=== PATIENT | male | born 2000 | race American Indian/Alaskan Native ===

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

== ENCOUNTER 2019-05-19 00:28 | Emergency (ER) | payer SELFPAY ==
[2019-05-19 00:50] VITALS: BP 108/66
[2019-05-19] MEDS ORDERED: DELTASONE PO ONE (02:06)
[2019-05-19] MEDS ORDERED: DUONEB *Not for PRN Use IH ONE (02:06)
--- NOTE | 2019-05-19 02:07 | Emergency Department Report ---
Minor Respiratory - HPI Chief Complaint: Upper Respiratory Infection Stated Complaint: SORE THROAT,HEADACHE,CONGESTION Time Seen by Provider: 05/19/19 02:01 Duration: 3 Days Pain Location: Chest Severity: mild Minor Respiratory: Yes Sore Throat, Yes Able to Tolerate Fluids, Yes Cough, No Rhinorrhea, No Ear Pain, No Sick Contacts, No Hemoptysis, No Chest Pain, No Shortness of Breath, No Fever Other History: 18 YO MALE WITH HX ASTHMA COMES TO ER WITH COUGH AND SORE THROAT. REPORTS WHEEZING AND HIS NEBS NOT HELPING. NO FEVER OR CHILLS. NO SPUTUM ED Review of Systems ROS: Stated complaint: SORE THROAT,HEADACHE,CONGESTION Other details as noted in HPI Comment: All other systems reviewed and negative ED Past Medical Hx - Past Medical History Previous Medical History?: Yes Hx Asthma: Yes - Surgical History Past Surgical History?: Yes - Social History Smoking Status: Never Smoker Substance Use Type: None - Medications Home Medications: Home Medications Medication Instructions Recorded Confirmed Last Taken Type Azithromycin [Zithromax Z-JURGEN] 0 mg PO DAILY #6 tab 04/03/17 Unknown Rx Ibuprofen [Motrin 600 MG tab] 600 mg PO Q8H PRN #20 tablet 04/03/17 Unknown Rx Loratadine [Claritin] 10 mg PO DAILY 04/03/17 04/03/17 04/03/17 History Promethazine [Phenergan TAB] 25 mg PO Q6HR PRN #20 tab 04/03/17 Unknown Rx Promethazine [Phenergan] 25 mg [place] Q6HR PRN #5 supp.rect 04/03/17 Unknown Rx Albuterol Sulfate [Proair 90 mcg IH QID PRN #1 aer.pow.ba 05/19/19 Unknown Rx Respiclick] Azithromycin [Zithromax Z-JURGEN] 250 mg PO DAILY #6 tablet 05/19/19 Unknown Rx Fluticasone [Flonase] 1 spray NS QDAY #1 bottle 05/19/19 Unknown Rx predniSONE [Deltasone] 20 mg PO DAILY #5 tablet 05/19/19 Unknown Rx Minor Respiratory Exam - Exam General: Vital signs noted. No distress. Alert and acting appropriately. HEENT: Yes Pharyngeal Erythema, Yes Moist Mucous Membranes, No Pharyngeal Exudates, No Rhinorrhea Ear: Neither TM Bulge, Neither TM Erythema, Neither EAC Pain, Neither EAC Discharge Neck: Yes Supple, No Adenopathy Lungs: Yes Good Air Exchange, Yes Wheezes, No [place], No Stridor Heart: Yes Regular, No Murmur Neurologic: Alert and oriented, no deficits. Musculoskeletal: Unremarkable. ED Course Vital Signs 05/19/19 05/19/19 00:38 00:46 Temperature 97.9 F 97.9 F Pulse Rate 88 Respiratory 18 18 Rate Blood Pressure 108/66 108/66 O2 Sat by Pulse 97 Oximetry ED Medical Decision Making - Medical Decision Making SIMPLE ASTHMA AE NO FEVER OR CHILLS NO SPUTUM VSS AMBULATORY NON TOXIC TAKING PO Vital Signs 05/19/19 05/19/19 00:38 00:46 Temperature 97.9 F 97.9 F Pulse Rate 88 Respiratory 18 18 Rate Blood Pressure 108/66 108/66 O2 Sat by Pulse 97 Oximetry - Differential Diagnosis SIMPLE URI/ASTHMA Critical care attestation.: If time is entered above; I have spent that time in minutes in the direct care of this critically ill patient, excluding procedure time. ED Disposition Clinical Impression: Asthma, acute, URTI (acute upper respiratory infection) Disposition: TO HOME OR SELFCARE Is pt being admited?: No Does the pt Need Aspirin: No Condition: Stable Instructions: Asthma (ED) Prescriptions: predniSONE [Deltasone] 20 mg PO DAILY #5 tablet Fluticasone [Flonase] 1 spray NS QDAY #1 bottle Albuterol Sulfate [Proair Respiclick] 90 mcg IH QID PRN #1 aer.pow.ba PRN Reason: Wheezing Azithromycin [Zithromax Z-JURGEN] 250 mg PO DAILY #6 tablet Referrals: RAMESH PEREZ MD [Primary Care Provider] - 3-5 Days PRASHANT KNOX MD [Staff Physician] - 3-5 Days Time of Disposition: 02:12
== END 2019-05-19 02:58 | disposition home or self-care (01) ==
LOC: ED 00:28
DX: J45.909 Unspecified asthma, uncomplicated (principal); J06.9 Acute upper respiratory infection, unspecified; Z79.899 Other long term (current) drug therapy; Z88.0 Allergy status to penicillin
CPT/HCPCS: 94640; 99283; J7512

== ENCOUNTER 2019-07-04 19:12 | Emergency (ER) | payer SELFPAY ==
[2019-07-04 19:21] VITALS: BP 108/62
--- NOTE | 2019-07-04 19:56 | Emergency Department Report ---
Blank Doc - Documentation Documentation: 18-year-old male that presents with URI symptoms and sore throat. This initial assessment/diagnostic orders/clinical plan/treatment(s) is/are subject to change based on patient's health status, clinical progression and re- assessment by fellow clinical providers in the ED. Further treatment and workup at subsequent clinical providers discretion. Patient/guardians urged not to elope from the ED as their condition may be serious if not clinically assessed and managed. Initial orders include: 1- Patient sent to [facility] for further evaluation and treatment 2- CXR 3- strep swabs
--- NOTE | 2019-07-04 21:46 | XRay Report ---
CHEST PA AND LATERAL VIEWS INDICATION: cough. COMPARISON: 04/03/2017 FINDINGS: Support devices: None Heart: Normal and unchanged. Lungs/Pleura: No acute pulmonary or pleural findings. IMPRESSION: 1. No significant abnormality and no interval change. Signer Name: Lake Martinez MD Signed: 07/04/2019 9:42 PM Workstation Name: [id number]
--- NOTE | 2019-07-04 22:33 | Emergency Department Report ---
- General Chief Complaint: Upper Respiratory Infection Stated Complaint: SINUS/SANTANA/SORE THROAT Time Seen by Provider: 07/04/19 19:55 Source: patient Mode of arrival: Ambulatory Limitations: No Limitations - History of Present Illness Initial Comments: 18-year-old -I[place] male with past medical history of asthma presents emergency department complaining of cough congestion and coryza over the last 2 weeks. MD Complaint: sore throat, rhinorrhea, nasal congestion -: Gradual, days(s) (14) Severity: mild, moderate Quality: dull Consistency: constant Improves With: nothing Worsens With: nothing Context: sick contacts Associated Symptoms: rhinorrhea, nasal congestion, sore throat, cough (with green-yellow mucus production increase in activity over the past 3 days). denies: shortness of breath, abdominal pain, vomiting, diarrhea, epistaxis - Related Data Home Medications Medication Instructions Recorded Confirmed Last Taken Loratadine [Claritin] 10 mg PO DAILY 04/03/17 04/03/17 04/03/17 Previous Rx's Medication Instructions Recorded Last Taken Type Azithromycin [Zithromax Z-JURGEN] 0 mg PO DAILY #6 tab 04/03/17 Unknown Rx Ibuprofen [Motrin 600 MG tab] 600 mg PO Q8H PRN #20 tablet 04/03/17 Unknown Rx Promethazine [Phenergan TAB] 25 mg PO Q6HR PRN #20 tab 04/03/17 Unknown Rx Promethazine [Phenergan] 25 mg [place] Q6HR PRN #5 supp.rect 04/03/17 Unknown Rx Albuterol Sulfate [Proair 90 mcg IH QID PRN #1 aer.pow.ba 05/19/19 Unknown Rx Respiclick] Azithromycin [Zithromax Z-JURGEN] 250 mg PO DAILY #6 tablet 05/19/19 Unknown Rx Fluticasone [Flonase] 1 spray NS QDAY #1 bottle 05/19/19 Unknown Rx predniSONE [Deltasone] 20 mg PO DAILY #5 tablet 05/19/19 Unknown Rx ALBUTEROL Inhaler (OR & NICU) 1 puff IH Q4-6H PRN #1 inha 07/04/19 Unknown Rx [ProAir HFA Inhaler] guaiFENesin/CODEINE [Robitussin AC] 5 ml PO Q6H PRN #120 ml 07/04/19 Unknown Rx predniSONE [Deltasone] 20 mg PO QDAY #5 tab 07/04/19 Unknown Rx Allergies Allergy/AdvReac Type Severity Reaction Status Date / Time Penicillins Allergy Rash Verified 04/19/15 11:22 ED Review of Systems ROS: Stated complaint: SINUS/SANTANA/SORE THROAT Other details as noted in HPI Comment: All other systems reviewed and negative ED Past Medical Hx - Past Medical History Hx Asthma: Yes - Social History Smoking Status: Never Smoker Substance Use Type: None - Medications Home Medications: Home Medications Medication Instructions Recorded Confirmed Last Taken Type Azithromycin [Zithromax Z-JURGEN] 0 mg PO DAILY #6 tab 04/03/17 Unknown Rx Ibuprofen [Motrin 600 MG tab] 600 mg PO Q8H PRN #20 tablet 04/03/17 Unknown Rx Loratadine [Claritin] 10 mg PO DAILY 04/03/17 04/03/17 04/03/17 History Promethazine [Phenergan TAB] 25 mg PO Q6HR PRN #20 tab 04/03/17 Unknown Rx Promethazine [Phenergan] 25 mg [place] Q6HR PRN #5 supp.rect 04/03/17 Unknown Rx Albuterol Sulfate [Proair 90 mcg IH QID PRN #1 aer.pow.ba 05/19/19 Unknown Rx Respiclick] Azithromycin [Zithromax Z-JURGEN] 250 mg PO DAILY #6 tablet 05/19/19 Unknown Rx Fluticasone [Flonase] 1 spray NS QDAY #1 bottle 05/19/19 Unknown Rx predniSONE [Deltasone] 20 mg PO DAILY #5 tablet 05/19/19 Unknown Rx ALBUTEROL Inhaler (OR & NICU) 1 puff IH Q4-6H PRN #1 inha 07/04/19 Unknown Rx [ProAir HFA Inhaler] guaiFENesin/CODEINE [Robitussin AC] 5 ml PO Q6H PRN #120 ml 07/04/19 Unknown Rx predniSONE [Deltasone] 20 mg PO QDAY #5 tab 07/04/19 Unknown Rx ED Physical Exam - General Limitations: No Limitations General appearance: alert, in no apparent distress - Head Head exam: Present: atraumatic, normocephalic - Eye Eye exam: Present: normal appearance, PERRL, EOMI Pupils: Present: normal accommodation - ENT ENT exam: Present: normal exam, normal orophraynx, mucous membranes moist, TM's normal bilaterally, other (nasal congestion via bilaterally airway patent tongue and uvula are midline) - Neck Neck exam: Present: normal inspection - Respiratory Respiratory exam: Present: normal lung sounds bilaterally, rhonchi. Absent: respiratory distress, wheezes - Cardiovascular Cardiovascular Exam: Present: regular rate, normal rhythm. Absent: systolic murmur, diastolic murmur, rubs, gallop - GI/Abdominal GI/Abdominal exam: Present: soft, normal bowel sounds - Rectal Rectal exam: Present: deferred - Extremities Exam Extremities exam: Present: normal inspection - Back Exam Back exam: Present: normal inspection - Neurological Exam Neurological exam: Present: alert, oriented X3 - Psychiatric Psychiatric exam: Present: normal affect, normal mood - Skin Skin exam: Present: warm, dry, intact, normal color. Absent: rash ED Course Vital Signs 07/04/19 07/04/19 19:20 20:00 Temperature 98.5 F 98.5 F Pulse Rate 97 H 94 H Respiratory 16 18 Rate Blood Pressure 108/62 108/62 O2 Sat by Pulse 97 96 Oximetry ED Medical Decision Making - Radiology Data Radiology results: report reviewed [address] [place] [id number] XRay Report Signed Patient: USHA SCHULTE MR#: [id number] : 2000 Acct:[id number] Age/Sex: 18 / M ADM Date: 07/04/19 Loc: ED Attending Dr: Ordering Physician: ROSEMARY SEGOVIA NP Date of Service: 07/04/19 Procedure(s): XR chest routine 2V Accession Number(s): [id number] cc: ROSEMARY SEGOVIA NP Fluoro Time In Minutes: CHEST PA AND LATERAL VIEWS INDICATION: cough. COMPARISON: 04/03/2017 FINDINGS: Support devices: None Heart: Normal and unchanged. Lungs/Pleura: No acute pulmonary or pleural findings. IMPRESSION: 1. No significant abnormality and no interval change. Signer Name: Lake Martinez MD Signed: 07/04/2019 9:42 PM Workstation Name: [id number] Transcribed By: TM Dictated By: Lake Martinez MD Electronically Authenticated By: Lake Martinez MD Signed Date/Time: 07/04/192141 - Medical Decision Making 18-year-old [place] male with nonspecific history of asthma not taking his medications at present time the negative strep tests and chest x-ray. Has rhonchi and some coarseness on his breath sounds on examination has been coughing up a lot of mucus symptoms are suggestive of bronchitis as there is no other infectious process at current he is alert and oriented 3 in no acute acute distress laughing and speaking in full sentences. Advised no importance of 4 mm and his albuterol inhaler and the need to follow with primary care doctor for reevaluation in 2-3 days Critical care attestation.: If time is entered above; I have spent that time in minutes in the direct care of this critically ill patient, excluding procedure time. ED Disposition Clinical Impression: Cough, Bronchitis Disposition: DC-01 TO HOME OR SELFCARE Is pt being admited?: No Does the pt Need Aspirin: No Condition: Stable Instructions: Chronic Bronchitis (ED), Acute Bronchitis (ED) Referrals: [facility] [Provider Group] - 2-3 Days
== END 2019-07-05 02:00 | disposition home or self-care (01) ==
LOC: ED 19:12
DX: J45.909 Unspecified asthma, uncomplicated (principal); Z79.899 Other long term (current) drug therapy; Z88.0 Allergy status to penicillin
CPT/HCPCS: 71046; 87116; 87430; 99283

== ENCOUNTER 2022-03-02 23:12 | Emergency (ER) | payer SELFPAY | END 2022-03-02 23:45 | disposition left against medical advice (07) | LOC: ED 23:12 | DX: R10.9 Unspecified abdominal pain (principal); Z53.21 Procedure and treatment not carried out due to patient leaving prior to being seen by health care provider ==